=== PATIENT | female | born 1995 | race Caucasian/White ===

== ENCOUNTER 2022-03-21 14:18 | Inpatient (IN) ==
[~2022-03-21 14:18] MED LIST: STERILE WATER IRRIGATION IR ONE
[2022-03-21] MEDS: ANCEF VIAL 1 GRAM IVP ONE ×2 (14:20→16:20)
[2022-03-21] MEDS ORDERED: QUELICIN (OR ANECTINE) ONE (14:23)
[2022-03-21] MEDS ORDERED: ZEMURON 100 MG VIAL ONE (14:23)
[2022-03-21] MEDS ORDERED: DIPRIVAN VIAL 20 ML ONE (14:23)
[2022-03-21] MEDS ORDERED: FENTANYL VIAL INJ 250 mcg ONE (14:23)
[2022-03-21] MEDS ORDERED: SUPRANE ONE (14:25)
[2022-03-21] MEDS ORDERED: BRIDION ONE (14:56)
[2022-03-21] MEDS ORDERED: BENADRYL INJ 50 MG VIAL IVP PRN (15:17)
[2022-03-21] MEDS ORDERED: PHENERGAN INJ 25 MG IM PRN ×2 (15:17→15:23)
[2022-03-21] MEDS ORDERED: BARHEMSYS INJ IVP PRN (15:17)
[2022-03-21] MEDS ORDERED: ZOFRAN INJ 4 MG VIAL IVP PRN (15:17)
[2022-03-21] MEDS ORDERED: REGLAN INJ 10 MG VIAL IVP PRN (15:17)
[2022-03-21] MEDS ORDERED: MOTRIN TAB 800 MG PO PRN (15:23)
[2022-03-21] MEDS ORDERED: DILAUDID INJ ONE (15:25)
[2022-03-21] MEDS: DILAUDID INJ IVP PRN ×4 (15:27→15:42)
[2022-03-21] MEDS ORDERED: PITOCIN IVP ONE (15:33)
[2022-03-21] MEDS ORDERED: D5 LR + PITOCIN 10 UNITS/L 10 UNITS/1,000 ML BAG IV PRN (15:33)
[2022-03-21 15:39] LABS: BILIRUBIN,URINE NEGATIVE (NEGATIVE); BLOOD/HEMOGLOBIN,URINE 5+ (NEGATIVE); GLUCOSE, URINE NEGATIVE (NEGATIVE); KETONES,URINE 2+ (NEGATIVE); LEUKOCYTE ESTERASE ,URINE NEGATIVE (NEGATIVE); NITRITES,URINE NEGATIVE (NEGATIVE); PROTEIN,URINE 1+ (NEGATIVE); UROBILINOGEN,URINE NORMAL (NORMAL)
[2022-03-21] MEDS ORDERED: PITOCIN ONE (15:49)
[2022-03-21] MEDS ORDERED: D5 LR + PITOCIN 10 UNITS/L 10 UNITS/1,000 ML BAG IV ONE (15:50)
[2022-03-21] MEDS ORDERED: D5 1/2 NS 1,000 mL + PITOCIN 20 UNITS/L IV 20 UNITS/1,000 ML BAG IV ONE (15:51)
[2022-03-21] MEDS ORDERED: LR 1,000 ML IV 1,000 ML IV ONE (15:51)
[2022-03-21] MEDS ORDERED: NS 100 ML IV 100 ML ONE (15:53)
[2022-03-21 15:57] LABS: APPEARANCE,URINE HAZY (CLEAR); BACTERIA,URINE 4+ /HPF (NEGATIVE); COLOR,URINE YELLOW (YELLOW); RBC,URINE TNTC /HPF (0-3); SQUAMOUS EPITHELIAL CELL,UR FEW /HPF (NEGATIVE)
[2022-03-21] MEDS ORDERED: ANCEF VIAL 1 GRAM ONE (15:57)
[2022-03-21] MEDS ORDERED: D5 1/2 NS 1,000 ML 1,000 ML with PITOCIN 20 UNITS IV SCH ×2 (16:00)
[2022-03-21] MEDS ORDERED: MYLICON TAB 80 MG CHEW PO PRN (16:08)
[2022-03-21] MEDS ORDERED: ADACEL or BOOSTRIX TDaP VACCINE IM ONE (16:08)
[2022-03-21] MEDS: LR 1,000 ML IV 1,000 ML with PITOCIN 20 UNITS IV SCH ×4 (16:08→16:09)
[2022-03-21 16:18] LABS: BLOOD UREA NITROGEN 10 mg/dL (7-18); CARBON DIOXIDE 22.7 mmol/L (21-32); CHLORIDE 106 mmol/L (98-107); COR NA(FOR HYPERGLY) 139 mmol/L (136-145); CREATININE 1.09 mg/dL (0.55-1.02); SODIUM 139 mmol/L (136-145); eGFR NON BLACK RACES > 60 (>60)
[2022-03-21 16:20] LABS: BASOPHILS # (AUTO) 0.1 X10^3/uL (0.0-0.1); BASOPHILS % (AUTO) 0.6 % (0.2-1.0); EOSINOPHILS # (AUTO) 0.1 x10^3/uL (0.0-0.2); EOSINOPHILS % (AUTO) 0.6 % (0.9-2.9); HEMATOCRIT 36.6 % (36.0-47.0); LYMPHOCYTES # (AUTO) 1.9 X10^3/uL (1.3-2.9); LYMPHOCYTES % (AUTO) 18.8 % (21.0-51.0); MEAN CORPUSCULAR HEMOGLOBIN 30.3 pg (27.0-34.0); MEAN CORPUSCULAR HGB CONC 35.4 g/dL (33.0-35.0); MEAN CORPUSCULAR VOLUME 85.4 fL (80.0-100.0); MEAN PLATELET VOLUME 9.5 fL (7.4-11.0); MONOCYTES # (AUTO) 0.9 x10^3/uL (0.3-0.8); MONOCYTES % (AUTO) 8.6 % (0.0-13.0); NEUTROPHILS # (AUTO) 7.1 x10^3/uL (2.2-4.8); NEUTROPHILS % (AUTO) 71.4 % (42.0-75.0); RED BLOOD COUNT 4.29 X10^6/uL (3.5-5.4); RED CELL DISTRIBUTION WIDTH 14.5 % (11.6-16.5); WHITE BLOOD COUNT 9.9 X10^3/uL (3.6-10.0)
[2022-03-21] MEDS: MORPHINE SULFATE INJ 4 MG IVP PRN ×2 (17:06→20:30)
[2022-03-21] MEDS ORDERED: MORPHINE SULFATE INJ 4 MG ONE (17:09)
[2022-03-21] MEDS: PERCOCET TAB 5/325 MG PO PRN (22:50)
[2022-03-22] MEDS: LR 1,000 ML IV 1,000 ML with PITOCIN 20 UNITS IV SCH ×8 (02:05→16:32)
[2022-03-22] MEDS: MOTRIN TAB 800 MG PO PRN ×2 (02:07→16:20)
[2022-03-22 05:39] LABS: HEMATOCRIT 32.5 % (36.0-47.0); HEMOGLOBIN 11.6 g/dL (12.0-16.0)
[2022-03-22] MEDS: PRENATAL PLUS PO SCH (08:46)
[2022-03-22] MEDS: PERCOCET TAB 5/325 MG PO PRN ×2 (08:49→18:05)
[2022-03-23] MEDS: PERCOCET TAB 5/325 MG PO PRN ×2 (00:05→08:04)
[2022-03-23] MEDS: PRENATAL PLUS PO SCH (08:00)
[2022-03-23 10:34] VITALS: BP 114/79
[2022-03-23] MEDS ORDERED: ADACEL or BOOSTRIX TDaP VACCINE IM ONE (11:11)
[2022-03-23] MEDS ORDERED: LEVAQUIN TAB 250 MG PO ONE (11:34)
[2022-03-23] MEDS ORDERED: LEVAQUIN TAB 500 MG ONE (11:37)
== END 2022-03-23 12:35 | disposition home or self-care (01) | DRG 786 ==
LOC: LD 14:18 → MED/SURG 16:14
PROVIDERS: ADMIT Obstetrics & Gynecology Obstetrics; ATTEND Obstetrics & Gynecology Obstetrics
DX: O45.8X2 Other premature separation of placenta, second trimester; O31.8X22 Other complications specific to multiple gestation, second trimester, fetus 2; O32.1XX2 Maternal care for breech presentation, fetus 2; Z3A.25 25 weeks gestation of pregnancy; F15.90 Other stimulant use, unspecified, uncomplicated; O60.12X0 Preterm labor second trimester with preterm delivery second trimester, not applicable or unspecified; O99.324 Drug use complicating childbirth; Z37.2 Twins, both liveborn; O30.042 Twin pregnancy, dichorionic/diamniotic, second trimester